=== PATIENT | male | born 1985 | race Two or more races ===

== ENCOUNTER 2024-10-22 04:39 | Emergency (ER) | payer SELFPAY ==
[2024-10-22 04:43] VITALS: BP 136/86; PULSE 112; RESP 18; TEMP 36.8; O2SAT 96; BMI 26.6
--- NOTE | 2024-10-22 05:03 | XR_ITS ---
Examination: Left hand 2 views TECHNIQUE: AP lateral left hand 2 views Date and time on October 22, 2024 0504 hours INDICATIONS: Patient fell today within the hand, hand pain. FINDINGS: Fracture deformity proximal phalanx fifth digit which appears old but clinical correlation is advised No dislocation. No foreign body. Old fracture distal ulnar shaft On the lateral view of the distal ulna is dorsally positioned IMPRESSION: Fracture deformity proximal phalanx fifth digit which appears old, clinical correlation is advised On the lateral view the distal ulna is dorsally positioned, clinical correlation advised, suggest follow-up true lateral view of the wrist as clinically warranted
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
[2024-10-22] MEDS: KETOROLAC INJ 60 MG/2 ML VIAL 30 MG IM (05:51)
== END 2024-10-22 06:58 ==
DX: Z02.89 Encounter for other administrative examinations (principal); S00.31XA Abrasion of nose, initial encounter; M79.645 Pain in left finger(s); T14.8XXA Other injury of unspecified body region, initial encounter; Y35.813A Legal intervention involving manhandling, suspect injured, initial encounter; Z65.3 Problems related to other legal circumstances
CPT/HCPCS: 70150; 73120; 96372; 99283; J1885